=== PATIENT | male | born 1970 | race Caucasian/White ===

== ENCOUNTER 2016-10-14 09:04 | Emergency (ER) | payer OTHER ==
[2016-10-14] MEDS ORDERED: BUPIVACAINE HCL/PF 5 MG/ML 10ML VIAL IV ONE (09:19)
[2016-10-14] MEDS ORDERED: BUPIVACAINE HCL/PF 5 MG/ML 10ML VIAL IJ ONE (09:22)
[2016-10-14] MEDS ORDERED: DIPH,PERTUSS(ACELL),TET VAC/PF 0.5 ML DISP.SYRIN IM ONE (09:22)
[2016-10-14 10:23] VITALS: BP 122/74
--- NOTE | 2016-10-14 11:42 | ED Physician Documentation ---
Upper Extremity Injury - HISTORIAN Historian: patient, spouse - HPI Stated Complaint: laceration Chief Complaint: Upper Extremity Injury Onset: just prior to arrival Where: home Severity: moderate Context: blow Further Comments: yes (46 year old male patient presents with injury to left ring finger. Pinched between 2 boards while buildling a rabbit cage. last tetanus 8 years ago.) - ROS CONST: no problems CVS/RESP: none NEURO: none MS/SKIN/LYMPH: none - PAST HX Past History: Rt handed Allergies/Adverse Reactions: Allergies Allergy/AdvReac Type Severity Reaction Status Date / Time No Known Allergies Allergy Verified 10/14/16 10:12 Home Medications: Ambulatory Orders Medication Instructions Recorded Cephalexin [Keflex] 500 mg PO QID #40 capsule 10/14/16 Mupirocin [Bactroban] 1 appl TP BID #1 tube 10/14/16 - SOCIAL HX Smoking History: non-smoker - FAMILY HX Family History: denies: none - VITAL SIGNS Vital Signs: Vital Signs Temp Pulse Resp BP Pulse Ox 98.0 F 67 16 122/74 98 10/14/16 10:22 10/14/16 10:22 10/14/16 10:22 10/14/16 10:22 10/14/16 10:22 - REVIEWED ASSESSMENTS Nursing Assessment Reviewed: Yes Vitals Reviewed: Yes Procedures Wound Location: other (left 4th digit, ring finger) Wound's Depth, Shape: flap Wound Explored: clean Irrigated w/ Saline (ccs): 900 Betadine Prep?: No (chlorhexidine) Anesthesia: Other (Marcaine .5% digital block) Volume of Anesthetic: 5 Wound Repaired With: sutures Suture Size/Type: 5:0 Number of Sutures: 7 Layer Closure?: No Sterile Dressing Applied?: Yes Progress - Progress Progress: Patient tolerated digital block well, wound repaired using sterile technique. Irrigated with 800cc NS, no tendon visualized, no bone visualized, ROM intact. Edges well approximated. Reviewed discharge instructions with patient and . Verbalized understanding. ED Results Lab/Radiology - Radiology Radiology Impressions: Left 4th digit 3 views History: Pain after injury Findings: The left ring finger is slightly swollen without fracture, dislocation , arthropathy, or focal bone lesion. Electronically signed on Oct 14, 2016 10:15:46 AM CDT by: Jeff Mcgowan - Orders Orders: ED Orders Category Date Time Status Cleanse with NS and Chlorhexid 1T Care 10/14/16 09:22 Active FINGER 2 VIEWS OR MORE [RAD] Stat Exams 10/14/16 Taken Bupivacaine HCl/Pf [Marcaine 0.5%] Med 10/14/16 09:22 Discontinued 5 mg IJ NOW ONE Bupivacaine HCl/Pf [Marcaine 0.5%] Med 10/14/16 09:19 Discontinued 50 mg IV .STK-MED ONE Diph,Pertuss(Acell),Tet Vac/Pf [Adacel] Med 10/14/16 09:22 Discontinued 0.5 ml IM .ONCE ONE Upper Extremity Injury Physic - Physical Exam General Appearance: mild distress Hand: normal ROM, laceration (laceration to tip of left ring finger "C" shaped) . No: limited ROM, nail injury Neuro/Vascular/Tendon: no vascular compromise, motor nml, sensation nml, ROM nml Skin: warm,dry Resp/CVS: chest non-tender, breath sounds nml Discharge Clincal Impression: Finger laceration Qualifiers: Encounter type: initial encounter Finger: ring finger Damage to nail status: without damage Foreign body presence: without foreign body Laterality: left Qualified Code(s): S61.215A - Laceration without foreign body of left ring finger without damage to nail, initial encounter Prescriptions: Cephalexin [Keflex] 500 mg PO QID #40 capsule Mupirocin [Bactroban] 1 appl TP BID #1 tube Referrals: Minoo Guthrie, PRN [Primary Care Provider] - 2 Days Home Medications: Ambulatory Orders Cephalexin [Keflex] 500 mg PO QID #40 capsule 10/14/16 Mupirocin [Bactroban] 1 appl TP BID #1 tube 10/14/16 Condition: Stable Disposition: 01 HOME, SELF-CARE Decision to Admit: NO Decision Time: 10:20
--- NOTE | 2016-10-14 18:19 | Diagnostic Imaging Report ---
GARRETT BETHEA (TAMI) - ER~ [facility] [address] [facility].[address] [address] ~ ~ ~ ~ Report Submission Date: Oct 14, 2016 10:15:46 AM CDT Patient ~ Study Name: SAMANTHA GUERRIER ~ Date: Oct 14, 2016 9:53:26 AM CDT ~ Modality Type: CR Gender: M ~ Description: UPPER EXTREMITY : 66 ~ Institution: [facility] Physician: GARRETT BETHEA) - ER ~ ~ ~ ~ Left 4th digit 3 views History: Pain after injury Findings: The left ring finger is slightly swollen without fracture, dislocation , arthropathy, or focal bone lesion. ~ Electronically signed on Oct 14, 2016 10:15:46 AM CDT by: Jeff CONTEH
== END 2016-10-14 10:22 | disposition home or self-care (01) ==
LOC: ED 09:04
DX: S61.215A Laceration without foreign body of left ring finger without damage to nail, initial encounter (principal); X58.XXXA Exposure to other specified factors, initial encounter; Y93.9 Activity, unspecified; Y99.9 Unspecified external cause status
CPT/HCPCS: 73140; 90715; J3490; J7030; 12002; 90471; 96360; 99283

== ENCOUNTER 2017-08-04 11:50 | Outpatient (CLI) | payer OTHER ==
--- NOTE | 2017-08-04 13:45 | Diagnostic Imaging Report ---
MOISE GUAMAN (SURVEY TECHNICIAN) - OP [facility] [address] [facility].[address] [address] Report Submission Date: Aug 04, 2017 12:25:58 PM CDT Patient Study Name: SAMANTHA GUERRIER Date: Aug 04, 2017 11:55:17 AM CDT Modality Type: DX Gender: M Description: CHEST : 66 Institution: [facility] Physician: MOISE GUAMAN (TAMI) - OP Examination: PA and lateral chest. History: Evaluate lung griffin. CHEST PAIN X 2 WEEKS, HX OF HIATAL HERNIA (Hx) Comparison exam: None provided. Findings: PA lateral chest demonstrate a normal cardiac and mediastinal silhouette. No focal infiltrate. No blunting of the costophrenic margins. Osseous structures are appropriate for age. Impression: No acute pulmonary process. Electronically signed on Aug 04, 2017 12:25:58 PM CDT by: Sebastián CONTEH
== END 2017-08-04 11:52 ==
LOC: RAD 11:50
PROVIDERS: ATTEND Nurse Practitioner Family
DX: R06.02 Shortness of breath (principal); R07.9 Chest pain, unspecified
CPT/HCPCS: 71046